=== PATIENT | male | born 1945 | race Caucasian/White ===

== ENCOUNTER 2020-07-05 20:42 | Observation (INO) | payer BC, OTHER, SELFPAY ==
--- NOTE | ~2020-07-05 | CT_ITS ---
EXAMINATION: CT brain wo con DATE: 07/05/2020 21:48 INDICATION: Dizziness. Extremity weakness. TECHNIQUE: Computed tomography (CT) of the head was performed without intravenous contrast. The mA wa s adjusted according to patient size. Iterative reconstruction technique was employed. The dose-lengt h product was 681.00 mGy-cm. COMPARISON: None FINDINGS: There is no intracranial hemorrhage, acute infarction, or abnormal intracranial mass lesion . The ventricles are normal in size. There is mild mucosal thickening in the paranasal sinuses. The m astoid air cells are normal. The orbits are normal. IMPRESSION: 1. Normal brain. Reviewed, dictated and finalized at location A. [facility] IMPRESSION: 1. Normal brain.
[2020-07-05 20:49] VITALS: BP 144/78; PULSE 78; RESP 23; O2SAT 92
--- NOTE | 2020-07-05 20:57 | ECG_ITS ---
Measurements Intervals Zachary Rate: 80 P: 22 SD: 163 QRS: 28 QRSD: 109 T: 39 QT: 378 QTc: 438 Interpretive Statements SINUS RHYTHM NORMAL ECG Electronically Signed On 07-06-2020 6:56:27 CURATORIAL ASSISTANT by Ellis See D.O.
[2020-07-05 21:01] LABS: Glucose Point of Care 156 (65-105)
[2020-07-05 21:06] LABS: Basophils Percent Auto 0.2 % (0.2-1.2); Eosinophils Absolute Auto 0.2 K/mm3 (0-0.3); Eosinophils Percent Auto 2.2 % (0-4.4); Hematocrit 39.8 % (42.0-52.0); Hemoglobin 12.7 g/dL (14.0-18.0); Immature Granulocyte Absolute 0.03 K/mm3 (0.00-0.031); Immature Granulocyte Percent A 0.3 % (0-0.5); Lymphocytes Absolute Auto 1.86 K/mm3 (0.9-3.2); Lymphocytes Percent Auto 19.4 % (18.3-44.2); Mean Corpuscular HGB Conc 31.9 g/dl (32-36); Mean Corpuscular Hemoglobin 28.8 pg (26-34); Mean Corpuscular Volume 90.2 fl (80-100); Mean Platelet Volume 10.2 fl (7.4-10.4); Monocytes Absolute Auto 0.7 K/mm3 (0.1-0.6); Monocytes Percent Auto 7.5 % (2.6-8.5); Neutrophils Absolute Auto 6.8 K/mm3 (1.3-6.7); Neutrophils Percent Auto 70.4 % (45.5-73.1); Platelet Count Result 292 k/mm3 (150-375); Red Blood Count 4.41 M/mm3 (4.6-6.20); Red Cell Distribution Width 13.9 % (11.5-14.5); White Blood Count 9.6 K/mm3 (4.5-10.0)
[2020-07-05 21:17] LABS: Anion Gap 11 mmol/L (8-16); Blood Urea Nitrogen 33 mg/dL (9-20); Calcium 9.3 mg/dL (8.4-10.2); Carbon Dioxide 30 mmol/L (22-30); Chloride 100 mmol/L (98-107); Estimated CRCL calculation 43 ml/min; Estimated Glomerular Filt Rate 46; Glucose 153 mg/dL (75-110); Potassium 4.2 mmol/L (3.4-5.0); Sodium 141 mmol/L (137-145)
[2020-07-05 21:20] VITALS: TEMP 36.6
--- NOTE | 2020-07-05 21:27 | ED.DIZZY ---
HPI - Dizziness General Chief Complaint: Dizziness Stated Complaint: DIZZY/ARMS NUMB/LEGS DONT WORK Time Seen by Provider: 07/05/20 21:12 Source: patient Limitations: no limitations History of Present Illness HPI Narrative: Patient is a 75-year-old male complaining of dizziness, described as the room spinning, started tonight while sitting down. Patient states that he has been on and off dizzy for the past month but worse and persisted tonight. Patient also complaining of generalized weakness. Patient denies any speech or visual disturbance, numbness, but does admit to having unsteady gait. MD elicited complaint: dizziness Related Data Allergies Allergy/AdvReac Type Severity Reaction Status Date / Time bupropion Allergy Unknown Unknown Verified 07/05/20 21:24 Iodinated Contrast Media Allergy Unknown Unknown Verified 07/05/20 21:27 Contrast Media Allergy Unknown Unknown Uncoded 07/05/20 21:24 Review of Systems Review of Systems: All systems reviewed & are unremarkable except as noted in HPI and below Constitutional: Constitutional: Denies body ache(s), Denies chills, Denies excessive sweating, Denies fatigue, Denies fever(s), Denies headache(s), Denies lethargy, Denies malaise and Denies weight loss Eyes: Eyes: Denies blurry vision, Denies change in vision and Denies loss of vision ENT: Denies ear discharge, Denies headache(s), Denies lip swelling, Denies epistaxis, Denies nasal congestion, Denies neck pain, Denies throat swelling and Denies tongue swelling Cardiovascular: Cardiovascular: Denies chest pain, Denies chest pain at rest, Denies chest pain with activity, Denies diaphoresis, Denies rapid heart rate, Denies edema, Denies irregular heart rhythm, Denies lightheadedness, Denies palpitations, Denies dyspnea and Denies dyspnea on exertion Respiratory: Respiratory: Denies chest congestion, Denies cough, Denies hemoptysis, Denies dyspnea and Denies dyspnea on exertion Gastrointestinal: Gastrointestinal: Denies abdominal pain, Denies melena, Denies hematochezia, Denies diarrhea, Denies nausea, Denies vomiting and Denies hematemesis Musculoskeletal: Musculoskeletal: Denies abnormal gait, Denies deformity, Denies joint swelling, Denies limited range of motion, Denies neck pain and Denies numbness Neurologic: Denies Abnormal speech present, Denies abnormal gait, Denies confusion, Denies headache(s), Denies focal weakness, Denies loss of vision, Denies numbness, Denies Other visual disturbances and Denies Sensory deficit (Neuro) Psychiatric: Psychiatric: Denies confusion, Denies depression, Denies auditory hallucinations, Denies homicidal ideation and Denies suicidal ideation Endocrine: Endocrine: Denies cold intolerance, Denies excessive sweating, Denies fatigue, Denies heat intolerance and Denies palpitations Hematologic/Lymphatic: Hematologic/Lymphatic: Denies easy bleeding and Denies easy bruising Allergic/Immunologic: Allergic/Immunologic: Denies lip swelling, Denies throat swelling and Denies tongue swelling Exam Const: General: cooperative, healthy appearing, comfortable, no acute distress, well developed, alert and awake; No confusion Orientation/consciousness: oriented to person, oriented to place, oriented to time, patient oriented x3 and No confusion Limitations: no limitations HENMT: Head: normal to inspection, normocephalic and atraumatic Ears: hearing grossly normal bilaterally, TM normal on the right and TM normal on the left General nose exam: Normal external nose present, Normal nares present and No nasal discharge present Face and sinus: normal facial exam Mouth: Yes Normal oral and palatal mucosa present, Yes lip normal, Yes tongue normal and Yes oropharynx normal Throat: posterior oropharynx normal, tonsils normal and uvula midline Eyes: General: appearance normal, both eyes and all related structures Pupils: Equal, round and reactive pupils present EOM: EOMs intact bilaterally Neck: Neck: normal visual inspecti
[2020-07-05] MEDS: PROMETHAZINE HCL 25 MG/ML AMPUL 12.5 MG IV PUSH (21:36)
--- NOTE | 2020-07-05 21:40 | PC.NURSE ---
Patient to CT.
--- NOTE | 2020-07-05 22:52 | PM.IMHP ---
H&P: HPI History of Present Illness Date/Time: 07/05/20 22:52 Chief complaint: DIZZINESS Narrative: Sloan Fischer is a 75 year old male with past medical history of hyperlipidemia and type 2 diabetes who presents to the ED with complaints of dizziness. He has had recurring episodes within the last day, 3rd episode was unrelenting prompting him to come to the ED. He would have some vision blurriness and the room spinning. His dizziness would be so significant he had nonbloody emesis. Nothing made the dizziness better or worse , he did feel better after the treatment in the ED with meclizine and promethazine. he has no history of bleeding. He denies any other focal deficit. 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 He has no arrhythmia or heart issue that he knows of. he has never had a stroke in the past. he has never had problems with ear infections or fluid in his ears before. In the ED: Vitals stable, labs stable. Creatinine at 1.5 unknown baseline. EKG normal sinus rhythm rate 80. ED he was given L normal saline bolus, meclizine 25 mg x 1, promethazine. His dizziness is not elliott and patient was admitted for observation as he was too unsteady to walk. Review of Systems Review of Systems: Narrative: Constitutional: No Fever, No Chills, No Night Sweats, No Fatigue, No Malaise ENT/Mouth: No Hearing Changes, No Ear Pain, No Nasal Congestion, No Sinus Pain, No Hoarseness, No sore throat, No Rhinorrhea, No Swallowing Difficulty Eyes: No Eye Pain, No Redness. he does endorse vision blurriness associated with dizziness Cardiovascular: No Chest Pain, No Palpitations, No Dyspnea on Exertion, No Orthopnea, No Claudication, No Edema Respiratory: No Cough, No Sputum, No Wheezing, No Shortness of Breath Gastrointestinal: No Nausea, No Vomiting, No Diarrhea, No Constipation, No Abdominal Pain, No Heartburn, No Hematochezia, No Melena Genitourinary: No Dysuria, No Urinary Frequency, No Hematuria, No Urinary Incontinence, No Urgency Musculoskeletal: No Arthralgias, No Myalgias, No Joint Swelling, No Joint Stiffness, No Back Pain Skin: No Skin Lesions, No Pruritis, No Hair Changes Neuro: No Weakness, No Numbness, No Paresthesias, No Loss of Consciousness, No Syncope, No Headache. endorses dizziness. Psych: No Anxiety/Panic, No Depression, No Insomnia Heme: No Bruising, No Bleeding Lymph: No Adenopathy Endocrine: No Polyuria, No Polydipsia, No Temperature Intolerance [facility] Past Medical History Medical History (Updated 07/06/20 @ 05:01 by Asael Manley DO) Bladder cancer COPD with emphysema Hyperlipidemia Type 2 diabetes mellitus Surgical History Surgical History (Updated 07/06/20 @ 04:49 by Asael Manley DO) History of appendectomy History of cholecystectomy History of tonsillectomy Family History Family History (Updated 07/06/20 @ 04:51 by Asael Manley DO) Mother , old age Diabetes mellitus Father , TB, emphysema No problems noted. Social History Social History (Updated 07/06/20 @ 04:52 by Asael Manley DO) Social History: very active still golFitly and drives Smoking packs per day: 1 Smoking cigarettes per day: 20.0 Years smoked: 50 Smoking pack-years: 50.00 Smoking status: Former smoker Tobacco type: cigarettes Smoking end date: 09/02/17 Alcohol intake: never Alcohol use details: very occasionally Substance use: never Occupation/Education: retired Gender identity (if verbalized by the patient): Male Spiritual care concerns: No Meds Home Medications and Allergies Home Medications Medication Instructions Recorded Confirmed Type albuterol sulfate 2 puff INHALATION QID PRN 07/06/20 07/06/20 History alogliptin 12.5 mg PO DAILY 07/06/20 07/06/20 History atorvastatin 80 mg PO HS 07/06/20 07/06/20 History budesonide-formoterol [Symbicort] 2 puff INHALATION BID 11
[2020-07-05] MEDS: SODIUM CHLORIDE 0.9% IV 1,000 ML 999 ML IV CONT (23:11)
[2020-07-06] VITALS (18 sets, daily range): BP systolic 104–132; BP diastolic 63–76; PULSE 59–88; RESP 14–17; TEMP 36.6–36.8; O2SAT 94–98; BMI 30.8
[2020-07-06] MEDS: MECLIZINE HCL 25 MG TABLET PO ×2 (00:29→09:24)
--- NOTE | 2020-07-06 02:26 | PC.NURSE ---
This patient, Sloan Fischer, was admitted to [facility] Surg Room 302-01. Patient/family oriented to hospital policies and general routines including ID bracelet, bed and alarms, visiting hours, pain management, procedures, bathroom and other care routines, personal items, smoking policy, room service/diet, and visiting hours. Information on how to activate the Rapid Response Team has been discussed. Patient/Family are encouraged to report perceived risks to care and to ask questions if they do not understand what they are told or what they should do.
[2020-07-06] MEDS: SODIUM CHLORIDE 0.9% IV 1,000 ML 100 ML IV CONT (05:02)
[2020-07-06 06:14] LABS: Hemoglobin A1C 6.7 % (<5.7)
[2020-07-06 08:07] LABS: Glucose Point of Care 107 (65-105)
[2020-07-06 09:14] LABS: Hematocrit 40.9 % (42.0-52.0); Mean Corpuscular HGB Conc 31.8 g/dl (32-36); Mean Corpuscular Hemoglobin 29.1 pg (26-34); Mean Corpuscular Volume 91.7 fl (80-100); Mean Platelet Volume 10.4 fl (7.4-10.4); Platelet Count Result 271 k/mm3 (150-375); Red Blood Count 4.46 M/mm3 (4.6-6.20); Red Cell Distribution Width 13.9 % (11.5-14.5); White Blood Count 8.3 K/mm3 (4.5-10.0)
[2020-07-06 09:18] LABS: Anion Gap 9 mmol/L (8-16); Blood Urea Nitrogen 30 mg/dL (9-20); Calcium 9.1 mg/dL (8.4-10.2); Carbon Dioxide 29 mmol/L (22-30); Chloride 104 mmol/L (98-107); Estimated CRCL calculation 61 ml/min; Estimated Glomerular Filt Rate 59; Glucose 113 mg/dL (75-110); Magnesium 2.3 mg/dL (1.6-2.3); Potassium 4.1 mmol/L (3.4-5.0); Sodium 142 mmol/L (137-145)
[2020-07-06] MEDS: ENOXAPARIN 40 MG/0.4 ML SYRINGE SUB-Q (09:24)
--- NOTE | 2020-07-06 11:40 | PM.DS ---
DS: Admitting Diagnosis Admitting Diagnosis Admitting Diagnosis: DIZZINESS DS: Discharge Diagnosis Discharge Diagnosis (1) Labyrinthitis: Code(s): H83.09 - Labyrinthitis, unspecified ear Status: Acute Assessment and Plan: Possible Labyrinthitis given history given. Patient states his symptoms have resolved today. Differential includes possible TIA although seems unlikely. Unable to have MRI given hardware from neck surgery. Discussed with Dr. Eduardo who is okay for discharge from his standpoint with f/u with him as outpatient; he recommends aspirin 81 mg every other day for now. Discharge today back home F/u with Dr. Eduardo and PCP as outpatient Will discharge on meclizine as needed Discharge with aspirin 81 mg every other day per Neuro rec Consider Vestibular Therapy if recurrent (2) Hyperlipidemia: Qualifiers: Hyperlipidemia type: mixed hyperlipidemia Qualified Code(s): E78.2 - Mixed hyperlipidemia Code(s): E78.5 - Hyperlipidemia, unspecified Status: Acute Assessment and Plan: Continue lipitor (3) Type 2 diabetes mellitus: Qualifiers: Chronic kidney disease stage: stage 3 (moderate) Chronic kidney disease stage 3 subtype: stage 3a (GFR 45-59) Diabetes mellitus complication detail: with chronic kidney disease Diabetes mellitus complication status: with kidney complications Diabetes mellitus long term care pharmacist insulin use: without mcc use Qualified Code(s): E11.21 - Type 2 diabetes mellitus with diabetic nephropathy; N18.31 - Chronic kidney disease, stage 3a Code(s): E11.9 - Type 2 diabetes mellitus without complications Status: Acute Assessment and Plan: A1c 6.7. BGL 100s. Accuchecks ACHS, hypoglycemia protocol, correctional insulin, diabetic diet during stay Continue home regimen at discharge (4) Nausea & vomiting: Qualifiers: Vomiting Intractability: non-intractable Vomiting type: unspecified Qualified Code(s): R11.2 - Nausea with vomiting, unspecified Code(s): R11.2 - Nausea with vomiting, unspecified Status: Acute Assessment and Plan: Resolved. Due to Vertigo symptoms F/u with PCP DS: Summary Hospital Course Reason for hospitalization: Dizziness/vertigo Hospital Course: Patient is a 75 yo male with past medical history of hyperlipidemia and type 2 diabetes who presented to the ED 07/05 with complaints of dizziness. Patient noteiced recurring episodes of dizziness the day prior to arrival and on the third episode, dizziness was unrelenting, prompting him to come to the ED. While in the ED, VSS, labs grossly unremarkable, EKG was NSR with rate 80. He was given 1 L NS IV bolus, meclizine and promethazine without improvements in symptoms. He was unsteady with ambulation. Patient admitted under this setting. Please see H&P for further details. Patient was admitted to the hospitalist service for further evaluation; Neurology consulted for further input. He was placed on meclizine BID with improvement in his symptoms after admission. His symptoms were resolved by discharge. Dr. Eduardo evaluated patient and was okay for discharge from his standpoint with follow up with him as an outpatient. Outpatient vestibular PT was recommended. He was given meclizine script for his dizziness per Neuro recommendations. Neuro also recommended aspirin 81 mg every other day for possible TIA. It was felt that this was likely labyrinthitis given his symptoms with TIA less likely. He was to follow up with Neurology and PCP after discharge for further management. Patient and family were agreeable and comfortable with plan for discharge. Patient hemodynamically stable and in improved condition for discharge on 07/06 Status at Discharge Overall status at discharge: patient is progressing
[2020-07-06 12:11] LABS: Glucose Point of Care 150 (65-105)
== END 2020-07-06 13:00 | disposition home or self-care (01) ==
LOC: ANHED 23:01 → ANH3MEDSUR 07-06 02:11
PROVIDERS: Emergency Medicine; Physician Assistant; Admitting Provider Student in an Organized Health Care Education/Training Program; Emergency Provider Emergency Medicine; Visit Provider Internal Medicine
DX: H83.09 Labyrinthitis, unspecified ear (principal); E78.2 Mixed hyperlipidemia; E11.21 Type 2 diabetes mellitus with diabetic nephropathy; E11.22 Type 2 diabetes mellitus with diabetic chronic kidney disease; J43.9 Emphysema, unspecified; N18.31 Chronic kidney disease, stage 3a; Z87.891 Personal history of nicotine dependence; Z85.51 Personal history of malignant neoplasm of bladder; Z79.4 Long term (current) use of insulin
CPT/HCPCS: 36415; 70450; 80048; 83036; 83735; 85025; 85027; 93005; 94640; 96361; 96372; 96374; 97161; 99285; A9270; G0378; J1650; J2550; J7030

== ENCOUNTER 2020-12-03 12:41 | Emergency (ER) | payer BC, OTHER, SELFPAY ==
[2020-12-03 12:50] VITALS: BP 138/90; PULSE 77; RESP 16; TEMP 36.4; O2SAT 99
[2020-12-03 13:52] LABS: Add Urine Microscopic? YES; Appearance Urine Cloudy (Clear); Bilirubin Urine Negative (Negative); Blood Urine 3+ (Negative); Color Urine Amber (Yellow); Glucose Urine UA Negative (Negative); Ketones Urine Negative (Negative); Leukocyte Esterase Ur Negative LEU/UL (Negative); Mucus Urine Rare /lpf; Nitrate Urine Negative (Negative); Protein Urine 2+ mg/dL (Negative); RBC Urine >75 /hpf (0-2); Specific Grav Ur 1.014 (1.001-1.035); Urobilinogen Urine Negative mg/dL (<2.0); WBC Urine >75 /hpf
[2020-12-03 13:58] VITALS: BP 127/77; PULSE 78; RESP 18; O2SAT 98
[2020-12-03 14:55] VITALS: BP 137/87; PULSE 73; RESP 16; O2SAT 98
--- NOTE | 2020-12-03 15:28 | ED.MALEGU ---
HPI - Male Genitourinary General Chief complaint: Urogenital-Male Stated complaint: unable to urinate Time Seen by Provider: 12/03/20 12:58 History of Present Illness HPI Narrative: Patient is a 75-year-old male who presents ER with inability to urinate. Reports this happens to him often. He had a Mendoza catheter removed just 3 days ago. 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 Reports usually he passes small clots but sometimes passes larger clots. At this time he cannot pass any urine. He has some mild lower abdominal pressure. No fevers or chills or sweats. Related Data Home Medications Medication Instructions Recorded Confirmed albuterol sulfate 2 puff INHALATION QID PRN 07/06/20 07/06/20 alogliptin 12.5 mg PO DAILY 07/06/20 07/06/20 atorvastatin 80 mg PO HS 07/06/20 07/06/20 budesonide-formoterol [Symbicort] 2 puff INHALATION BID 07/06/20 07/06/20 metformin 500 mg PO BID 07/06/20 07/06/20 Allergies Allergy/AdvReac Type Severity Reaction Status Date / Time bupropion Allergy Unknown Swelling Verified 07/06/20 03:01 Iodinated Contrast Media Allergy Unknown Unknown Verified 07/06/20 03:01 Contrast Media Allergy Unknown Unknown Uncoded 07/06/20 03:01 Review of Systems Review of Systems: All systems reviewed & are unremarkable except as noted in HPI and below Constitutional: Constitutional: Denies chills, Denies fever(s) and Denies weakness Respiratory: Respiratory: Denies cough and Denies dyspnea Gastrointestinal: Gastrointestinal: Reports abdominal pain, Denies diarrhea, Denies nausea and Denies vomiting Genitourinary: Genitourinary: Reports hematuria, Denies dysuria and Denies urinary incontinence Comments: Urinary retention [facility] Past Medical History Medical History (Updated 12/03/20 @ 15:30 by Marvin Cooper MD) Bladder cancer COPD with emphysema Hyperlipidemia Type 2 diabetes mellitus Surgical History Surgical History (Updated 07/06/20 @ 04:49 by Asael Manley DO) History of appendectomy History of cholecystectomy History of tonsillectomy Family History Family History (Updated 07/06/20 @ 04:51 by Asael Manley DO) Mother , old age Diabetes mellitus Father , TB, emphysema No problems noted. Social History Social History (Updated 07/06/20 @ 04:52 by Asael Manley DO) Social History: very active still golfs and drives Smoking packs per day: 1 Smoking cigarettes per day: 20.0 Years smoked: 50 Smoking pack-years: 50.00 Smoking status: Former smoker Tobacco type: cigarettes Smoking end date: 09/02/17 Alcohol intake: never Substance use: never Gender identity (if verbalized by the patient): Male Spiritual care concerns: No Exam Narrative: Exam Narrative: GENERAL: Well-appearing, well-nourished, and in no acute distress. HEAD: Normocephalic, atraumatic. CHEST: Clear to auscultation. No respiratory distress. HEART: Regular rate and rhythm. Normal peripheral pulses. ABDOMEN: Soft, nontender, nondistended. EXTREMITIES: Normal range of motion. No edema. NEURO: Alert and oriented x3. PSYCH: Normal mood and affect. Course Course Emergency Course: Three-way Mendoza placed and patient irrigated. Clots were evacuated. Patient taught how to irrigate at home. He has follow-up with his urologist at the [facility] this week. Reports he his been having hematuria chronically and does not typically clear. Vital Signs Vital signs: Vital Signs Temperature 97.6 F 12/03/20 12:50 Pulse Rate 77 12/03/20 12:50 Respiratory Rate 16 12/03/20 12:50 Blood Pressure 138/90 12/03/20 12:50 Pulse Oximetry 99 12/03/20 12:50 Temperature 97.6 F 12/03/20 12:50 Pulse Rate 73 12/03/20 14:55 Respiratory Rate 16 12/03/20 14:55 Blood Pressure 137/87 12/03/20 14:55 Pulse Oximetry 98 12/03/20 14:55 MDM - Male Genitourinary Lab Data Labs
[2020-12-03 15:50] VITALS: BP 139/74; PULSE 80; RESP 16; O2SAT 98
== END 2020-12-03 15:55 | disposition home or self-care (01) ==
PROVIDERS: Emergency Provider Emergency Medicine
DX: R33.9 Retention of urine, unspecified (principal); R31.9 Hematuria, unspecified; E11.9 Type 2 diabetes mellitus without complications; J43.9 Emphysema, unspecified; E78.5 Hyperlipidemia, unspecified; Z85.51 Personal history of malignant neoplasm of bladder; Z87.891 Personal history of nicotine dependence; Z79.84 Long term (current) use of oral hypoglycemic drugs
CPT/HCPCS: 81001; 87086; 99283